=== PATIENT | male | born 1950 | race Caucasian/White ===

== ENCOUNTER 2017-04-26 14:53 | Emergency (ER) | payer MEDICARE, OTHER ==
[~2017-04-26] VITALS: Ht 177.8 cm; Wt 90.7 kg
[~2017-04-26 14:53] MED LIST: IBP800T PO; NAPR250T34 PO; PRD20T PO; TRM50T PO
--- OUTSIDE RECORDS SUMMARY | 2017-04-26 14:59 | XMS REPORT | Continuity of Care Document ---
Author Author [facility] Organization [facility] Address Unknown Phone Unavailable Allergies Active Description Code Type Severity Reaction Onset Reported/Identified Relationship to Patient Clinical Status Yes No Known Drug Allergies [id number] Drug Allergy Unknown N/A 05/14/2012 Medications There is no data. Problems Date Dx Coded Attending Type Code Diagnosis Diagnosed By 05/14/2012 Ot 847.9 05/14/2012 Ot 922.31 05/14/2012 Ot 959.19 05/14/2012 Ot E849.0 05/14/2012 Ot E885.9 04/10/2013 SPENSER WILSON, HANK T Ot 719.41 04/10/2013 SPENSER WILSON, HANK T Ot 723.4 04/10/2013 SPENSER WILSON, HANK T Ot 724.1 04/10/2013 SPENSER WILSON, HANK T Ot 728.85 04/10/2013 HANK DUEÑAS MD T Ot E000.8 04/10/2013 HANK DUEÑAS MD T Ot E813.0 04/10/2013 HANK DUEÑAS MD T Ot E849.5 06/12/2013 HUGO HOLDEN MD Ot 723.1 06/12/2013 HUGO HOLDEN MD Ot 724.1 06/12/2013 HUGO HOLDEN MD Ot E929.0 06/12/2013 HUGO HOLDEN MD Ot V57.1 10/16/2013 ERIC HOOD MD Ot 723.1 10/16/2013 ERIC HOOD MD Ot V57.1 Procedures There is no data. Results There is no data. Encounters ACCT No. Visit Date/Time Discharge Status Pt. Type Provider Facility Loc./Unit Complaint [id number] 10/16/2013 09:00:00 10/16/2013 10:03:00 DIS Outpatient ERIC HOOD MD J [facility] [id number] 05/07/2013 08:33:00 06/12/2013 10:45:00 DIS Outpatient NAVIN WILSON, HUGO Cota [facility] [id number] 04/10/2013 14:21:00 04/10/2013 18:04:00 DIS Emergency SPENSER WILSON, HANK Saleem [facility] ER [id number] 08/31/2014 14:25:00 Document Registration
[2017-04-26] MEDS ORDERED: ASPIRIN 81 MG CHEW (CHILDREN'S ASA) PO ONE (15:00)
[2017-04-26] MEDS ORDERED: NITROGLYCERIN 0.4 MG SL TABS BTL 25'S SL PRN (15:00)
--- NOTE | 2017-04-26 15:52 | ED Neck-Back Pain/Injury ---
General Chief Complaint: General Problems/Pain Stated Complaint: NECK PAIN,SHOULDER PAIN,NUMBNESS RIGHT SIDE Nursing Triage Note: c/o posterior neck pain with radiation down right arm. Has noticied right hand becoming numb. Onset 2-3 nights ago. Nursing Sepsis Screen: No Definite Risk Source of Information: Patient, Family Exam Limitations: No Limitations History of Present Illness Time Seen by Provider: 15:02 Initial Comments Here with report of right-sided neck pain that radiates to the shoulder and arm and is now radiating down to the chest. Onset few nights ago and worsening worsening during the nights. Noted that his right hand was becoming none was sleeping and that is better now. Denies breathing problems or weakness. Denies diaphoresis. Does have a mild cough currently. Timing/Duration: 2-3 Days Severity: Moderate, Severe Pain/Injury Location: Neck Radiation: Other (shoulders and upper chest) Method of Injury: Unknown Modifying Factors: Worse With Movement Associated Symptoms: No muscle spasms, No weakness Allergies and Home Medications Allergies Coded Allergies: No Known Drug Allergies (Unverified , 05/14/12) Home Medications Ibuprofen 800 Mg Tablet, 1 TAB PO TID PRN PRN for PAIN, #30 Prescribed by: HANK TRIMBLE on 04/10/13 1758 Naproxen 250 Mg Tablet, 2 EACH PO DAILY, (Reported) Prednisone 20 Mg Tab, 2 TAB PO DAILY for 4 Days Start the morning of 04/11/13 Prescribed by: HANK TRIMBLE on 04/10/13 1758 Constitutional: see HPI, No chills, No fever EENTM: no symptoms reported Respiratory: no symptoms reported Cardiovascular: no symptoms reported Gastrointestinal: no symptoms reported Musculoskeletal: see HPI, muscle pain, neck pain Psychiatric/Neurological: See HPI, Numbness, Denies Weakness All Other Systems Reviewed Negative Unless Noted: Yes Past Qdiwgtf-Uknfwz-Njmmqu Hx Patient Social History Alcohol Use: Regular Use Alcohol Beverage of Choice: Beer Recreational Drug Use: No Smoking Status: Former Smoker Type Used: Cigarettes Recent Foreign Travel: No Contact w/Someone Who Travel: No Recent Infectious Disease Expo: No Surgeries History of Surgeries: Yes Surgeries: Orthopedic Respiratory History of Respiratory Disorde: No Cardiovascular History of Cardiac Disorders: Yes Cardiac Disorders: Hypertension Neurological History of Neurological Disord: No Genitourinary History of Genitourinary Disor: No Gastrointestinal History of Gastrointestinal Di: No Musculoskeletal History of Musculoskeletal Dis: No Musculoskeletal Disorders: Gout Reviewed Nursing Assessment Reviewed/Agree w Nursing PMH: Yes Physical Exam Vital Signs Vital Sign - Last 12Hours 04/26/17 15:11 Temp 97.5 Pulse 70 B/P (MAP) 179/108 (131) Pulse Ox 98 Capillary Refill : Less Than 3 Seconds General Appearance: No Apparent Distress, WD/WN HEENT: PERRL/EOMI, Pharynx Normal Neck: Non Tender, Supple, Other (mild pain when turning head to the right) Cardiovascular: Regular Rate, Rhythm, No Murmur Respiratory: Lungs Clear, Normal Breath Sounds Gastrointestinal: Non Tender, Soft Back: Normal Inspection, No CVA Tenderness, No Vertebral Tenderness Extremity: Normal Range of Motion, Non Tender Neurologic/Psychiatric: Alert, Oriented x3 Skin: Normal Color, Warm/Dry Progress/Results/Core Measures Results/Orders Lab Results Laboratory Tests Test 04/26/17 15:40 Range/Units White Blood Count 6.0 4.3-11.0 10^3/uL Red Blood Count 4.96 4.35-5.85 10^6/uL Hemoglobin 16.5 13.3-17.7 G/DL Hematocrit 46 40-54 % Mean Corpuscular Volume 94 80-99 FL Mean Corpuscular Hemoglobin 33 25-34 PG Mean Corpuscular Hemoglobin Concent 36 32-36 G/DL Red Cell Distribution Width 12.0 10.0-14.5 % Platelet Count 144 130-400 10^3/uL Mean Platelet Volume 9.9 7.4-10.4 FL Neutrophils (%) (Auto) 55 42-75 % Lymphocytes (%) (Auto) 27 12-44 % Monocytes (%) (Auto) 15 H 0-12 % Eosinophils (%) (Auto) 2 0-10 % Basophils (%) (Auto) 1 0-10 % Neutrophils # (Auto) 3.3 1.8-7.8 X 10^3 Lymphocytes # (Auto) 1.6 1.0-4.0 X 10^3 Monocytes # (Auto) 0.9 0.0-1.0 X 10^3 Eosinophils # (Auto) 0.1 0.0-0.3 10^3/uL Basophils # (Auto) 0.0 0.0-0.1 10^3/uL Sodium Level 134 L 135-145 MMOL/L Potassium Level 3.8 3.6-5.0 MMOL/L Chloride Level 100 98-107 MMOL/L Carbon Dioxide Level 20 L 21-32 MMOL/L Anion Gap 14 5-14 MMOL/L Blood Urea Nitrogen 7 7-18 MG/DL Creatinine 0.75 0.60-1.30 MG/DL Estimat Glomerular Filtration Rate > 60 BUN/Creatinine Ratio 9 Glucose Level 102 70-105 MG/DL Calcium Level 9.1 8.5-10.1 MG/DL Total Bilirubin 0.9 0.1-1.0 MG/DL Aspartate Amino Transf (AST/SGOT) 63 H 5-34 U/L Alanine Aminotransferase (ALT/SGPT) 60 H 0-55 U/L Alkaline Phosphatase 48 40-136 U/L Myoglobin 28.9 10.0-92.0 NG/ML Troponin I < 0.30 <0.30 NG/ML Total Protein 7.4 6.4-8.2 GM/DL Albumin 4.1 3.2-4.5 GM/DL My Orders Orders - OLAMIDE DONG MD Cbc With Automated Diff (04/26/17 14:57) Ekg Tracing (04/26/17 14:57) Comprehensive Metabolic Panel (04/26/17 14:57) Myoglobin Serum (04/26/17 14:57) Aspirin Chewable Tablet (Baby Aspirin Ch (04/26/17 15:00) Nitroglycerin 0.4 Mg Btl 25's (Nitrostat (04/26/17 15:00) Chest Pa/Lat (2 View) (04/26/17 15:10) Ct Cervical Spine Wo (04/26/17 15:10) Troponin I (04/26/17 15:10) Medications Given in ED Current Medications Medications Dose Ordered Sig/Grace Route Start Time Stop Time Status Last Admin Dose Admin Aspirin 324 mg ONCE ONCE PO 04/26/17 15:00 04/26/17 15:01 DC 04/26/17 15:47 324 MG Vital Signs/I&O Vital Sign - Last 12Hours 04/26/17 04/26/17 15:11 15:47 Temp 97.5 97.5 Pulse 70 B/P (MAP) 179/108 (131) Pulse Ox 98 Blood Pressure Mean: 131 Progress Note : Progress Note Seen and evaluated. CT neck ordered. Chest x-ray ordered. We will get basic labs and EKG to rule out equivalents. 1645: CT and chest x-ray negative. No significant abnormality and the labs. EKG does not show any significant abnormalities. Discharged home with return precautions. Patient verbalize understanding instructions and agreement with plan. ECG Initial ECG Impression Date: Apr 26, 2017 Initial ECG Impression Time: 15:04 Initial ECG Rate: 77 Initial ECG Rhythm: Normal Sinus Comment Sinus rhythm with left axis deviation. No evidence of ST elevation OK. No previous available for comparison. Interpreted by me. Diagnostic Imaging Diagonstic Imaging: CT Plain Films/CT/US/NM/MRI: c-spine Comments NAME: SHYANN JENSEN [facility] REC#: [id number] PT STATUS: REG ER : 1950 PHYSICIAN: OLAMIDE DONG MD ADMIT DATE: 04/26/17/ER Signed Date of Exam: 04/26/17 CT CERVICAL SPINE WO PROCEDURE: CT cervical spine without contrast. TECHNIQUE: Multiple contiguous axial images were obtained through the cervical spine without the use of intravenous contrast. Sagittal and coronal reformations were then performed. DATE: April 26, 2017. INDICATION: 67-year-old male, right-sided neck pain. Right extremity symptoms as well. COMPARISON: MRI cervical spine April 10, 2013. FINDINGS: There is no identified facet joint subluxation or dislocation. There are mild right and moderate left facet degenerative changes at C4-C5. There is minimal grade 1 anterolisthesis of C4 on C5 measuring 1-2 mm. There is no asymmetric widening of the cervical disc spaces. There is no pronounced cervical disc height loss. There are degenerative changes at the C1-C2 articulation. There are anterior osteophytes at C4-C5 and C5-C6. There is small posterior osteophyte formation at C6-C7. CT is limited for assessment of disc pathology as well as non-bony causes of foraminal and spinal stenosis. There is no identified acute fracture of the cervical spine. The mastoid air cells and middle ears are well aerated in their visualized portions. There are bilateral carotid vascular calcifications. IMPRESSION: 1. Mild disc degenerative changes of the cervical spine at C4-C5, C5-C6, and C6-C7. 2. Mild right and moderate left facet degenerative changes at C4-C5 with mild grade 1 anterolisthesis of C4 on C5 measuring 1-2 mm. 3. No identified acute abnormality of the cervical spine. 4. CT is limited for assessment of disc pathology as well as non-bony causes of foraminal and spinal stenosis. Dictated by: Dictated on workstation # [id number] Dict: 04/26/17 1625 Trans: 04/26/17 163 Interpreted by: TYLER RITTER MD Electronically signed by: TYLER RITTER MD 04/26/175 Diagonstic Imaging: Xray Plain Films/CT/US/NM/MRI: chest Comments [place] NAME: SHYANN JENSEN [facility] REC#: [id number] PT STATUS: REG ER : 1950 PHYSICIAN: OLAMIDE DONG MD ADMIT DATE: 04/26/17/ER Draft Date of Exam:04/26/17 CHEST PA/LAT (2 VIEW) Patient History: Cough and congestion. Technique: Two views of the chest. Comparison: None. Findings: The lung volumes are normal. No focal consolidation is seen. No large pleural effusion or pneumothorax is seen. The cardiomediastinal silhouette is normal in size and contour. No acute osseous abnormality is seen. Degenerative changes are noted in the spine. Impression: No acute pulmonary abnormality seen. Dictated on workstation # [id number] Dict: 04/26/179 Trans: 04/26/17 163 [facility] [id number] Interpreted by: NATHANIEL DE SOUZA MD Electronically signed by: Departure Impression Impression: Primary Impression: Cervical radiculopathy Disposition: 01 HOME, SELF-CARE Condition: Improved Departure-Patient Inst. Decision time for Depature: 16:48 Referrals: HUGO HOLDEN MD (PCP/Family) Primary Care Physician Patient Instructions: Cervical Muscle Strain (DC), Neck Pain Add. Discharge Instructions: All discharge instructions reviewed with patient and/or family. Voiced understanding. You may take Aleve up to 2 tablets twice daily for a few days and then back to 1 tablet twice daily as needed for pain. Ensure that you drink plenty of fluids (water) with this. Follow-up with your doctor next week for recheck and further evaluation and to discuss further evaluation including MRI of the cervical spine as needed. Return for worse pain, swelling, weakness, breathing problems or other concerns as needed. Scripts Prednisone (Prednisone) 20 Mg Tab 40 MG PO DAILY, #14 TAB 0 Refills Prov: OLAMIDE DONG MD 04/26/17 OLAMIDE DONG MD Apr 26, 2017 15:52
[2017-04-26 15:54] LABS: BASOPHILS % (AUTO) 1 % (0-10); EOSINOPHILS # (AUTO) 0.1 10^3/uL (0.0-0.3); EOSINOPHILS % (AUTO) 2 % (0-10); HEMATOCRIT 46 % (40-54); HEMOGLOBIN 16.5 G/DL (13.3-17.7); LYMPHOCYTES # (AUTO) 1.6 X 10^3 (1.0-4.0); LYMPHOCYTES % (AUTO) 27 % (12-44); MEAN CORPUSCULAR HEMOGLOBIN 33 PG (25-34); MEAN CORPUSCULAR HGB CONC 36 G/DL (32-36); MEAN CORPUSCULAR VOLUME 94 FL (80-99); MEAN PLATELET VOLUME 9.9 FL (7.4-10.4); MONOCYTES # (AUTO) 0.9 X 10^3 (0.0-1.0); MONOCYTES % (AUTO) 15 % (0-12); NEUTROPHILS # (AUTO) 3.3 X 10^3 (1.8-7.8); NEUTROPHILS % (AUTO) 55 % (42-75); PLATELET COUNT 144 10^3/uL (130-400); RED BLOOD COUNT 4.96 10^6/uL (4.35-5.85)
[2017-04-26 16:07] LABS: ALANINE AMINOTRANSFERASE 60 U/L (0-55); ALBUMIN 4.1 GM/DL (3.2-4.5); ALKALINE PHOSPHATASE 48 U/L (40-136); BILIRUBIN,TOTAL 0.9 MG/DL (0.1-1.0); BUN/CREATININE RATIO 9; CALCIUM 9.1 MG/DL (8.5-10.1); CARBON DIOXIDE 20 MMOL/L (21-32); CHLORIDE 100 MMOL/L (98-107); CREATININE SERUM 0.75 MG/DL (0.60-1.30); GFR ESTIMATED > 60; GLUCOSE 102 MG/DL (70-105); POTASSIUM 3.8 MMOL/L (3.6-5.0); SODIUM 134 MMOL/L (135-145); TOTAL PROTEIN 7.4 GM/DL (6.4-8.2)
[2017-04-26 16:12] LABS: MYOGLOBIN SERUM 28.9 NG/ML (10.0-92.0)
--- NOTE | 2017-04-26 16:34 | Diagnostic Imaging Report ---
PROCEDURE: CT cervical spine without contrast. TECHNIQUE: Multiple contiguous axial images were obtained through the cervical spine without the use of intravenous contrast. Sagittal and coronal reformations were then performed. DATE: April 26, 2017. INDICATION: 67-year-old male, right-sided neck pain. Right extremity symptoms as well. COMPARISON: MRI cervical spine April 10, 2013. FINDINGS: There is no identified facet joint subluxation or dislocation. There are mild right and moderate left facet degenerative changes at C4-C5. There is minimal grade 1 anterolisthesis of C4 on C5 measuring 1-2 mm. There is no asymmetric widening of the cervical disc spaces. There is no pronounced cervical disc height loss. There are degenerative changes at the C1-C2 articulation. There are anterior osteophytes at C4-C5 and C5-C6. There is small posterior osteophyte formation at C6-C7. CT is limited for assessment of disc pathology as well as non-bony causes of foraminal and spinal stenosis. There is no identified acute fracture of the cervical spine. The mastoid air cells and middle ears are well aerated in their visualized portions. There are bilateral carotid vascular calcifications. IMPRESSION: 1. Mild disc degenerative changes of the cervical spine at C4-C5, C5-C6, and C6-C7. 2. Mild right and moderate left facet degenerative changes at C4-C5 with mild grade 1 anterolisthesis of C4 on C5 measuring 1-2 mm. 3. No identified acute abnormality of the cervical spine. 4. CT is limited for assessment of disc pathology as well as non-bony causes of foraminal and spinal stenosis. Dictated by: Dictated on workstation # [id number]
--- NOTE | 2017-04-26 16:36 | Diagnostic Imaging Report ---
Patient History: Cough and congestion. Technique: Two views of the chest. Comparison: None. Findings: The lung volumes are normal. No focal consolidation is seen. No large pleural effusion or pneumothorax is seen. The cardiomediastinal silhouette is normal in size and contour. No acute osseous abnormality is seen. Degenerative changes are noted in the spine. Impression: No acute pulmonary abnormality seen. Dictated by: Dictated on workstation # [id number]
[2017-04-26] MEDS ORDERED: METO-370 (16:42)
[2017-04-26] MEDS ORDERED: PRD20T PO (16:50)
[2017-04-26 17:00] VITALS: BP 172/100
== END 2017-04-26 17:00 | disposition home or self-care (01) ==
LOC: EDUNIT# 14:53 → ER 14:56
DX: M54.12 Radiculopathy, cervical region (principal); I10 Essential (primary) hypertension; M10.9 Gout, unspecified; Z87.891 Personal history of nicotine dependence
CPT/HCPCS: 36415; 71020; 72125; 80053; 83874; 84484; 85025; 93005; 93041

== ENCOUNTER → 2017-05-13 | Outpatient (CLI) | payer MEDICARE, OTHER ==
[~2017-05-13] MED LIST changes: +METO-370
--- NOTE | 2017-05-13 10:37 | Diagnostic Imaging Report ---
PROCEDURE: MR imaging cervical spine without contrast. TECHNIQUE: Multiplanar, multisequence MR imaging of the cervical spine was performed without contrast. INDICATION: Neck pain, right arm and shoulder pain. FINDINGS: The previous MRI cervical spine exam of 04/10/2013 noted mild disc protrusions eccentric to the left at C5-C6 and C6-C7. The CT cervical spine exam of 04/26/17 also noted mild degenerative disc disease at C4-C5, C5-C6 and C6-C7 as well as moderate left facet degenerative disease at the C4-C5 level. There was also slight anterior translation of C4 with respect to C5. On this study, there is still a disc protrusion to the left at both C5-C6 and C6-C7. At the C6-C7 level, the AP diameter of thecal sac is narrowed to 10.4 MM. At the C5-C6 level, the disc protrusion to the left is not as prominent as on the prior exam. The AP diameter of the thecal sac at this level measures approximately 11.2 mm. However, in the interval since the previous exam, a focal disc protrusion to the right at C5-C6 has developed. The disc material does not produce central stenosis but there is narrowing of the neural foramen on the right and there are may be encroaching of the exiting right nerve root. The remainder of the cervical spine is unchanged when compared to the previous study. No new area of spinal stenosis or nerve root encroachment has developed. There is no abnormal signal arising from the cord or the vertebral bodies to indicate an acute abnormality. There is no sign of a paraspinal mass. The expected carotid and vertebral flow voids are evident bilaterally. IMPRESSION: 1. In the interval since the prior exam, a focal disc protrusion to the right has developed at C5-C6. While the disc material does not produce central stenosis, there is narrowing of the neural foramen on the right and there may be encroachment of the exiting right nerve root at this level. 2. The disc protrusion at the C6-C7 level seen previously is essentially no different while the disc bulge to the left at C5-C6 is less prominent than on the prior exam. 3. No new area of spinal stenosis or nerve root encroachment has developed. 4. There is no sign of an acute bony abnormality or for cord lesion. Dictated by: Dictated on workstation # [id number]
== END ==
LOC: RAD 06:53
PROVIDERS: ATTEND Family Medicine
DX: M48.02 Spinal stenosis, cervical region (principal); M50.122 Cervical disc disorder at C5-C6 level with radiculopathy
CPT/HCPCS: 72141

== ENCOUNTER 2018-07-31 17:59 | Emergency (ER) | payer MEDICARE, OTHER ==
[~2018-07-31] VITALS: Ht 177.8 cm; Wt 90.7 kg
[2018-07-31 18:34] VITALS: BP_SYST 123; BP_SYST 125; BP_SYST 128; BP_DIAS 72; BP_DIAS 75; BP_DIAS 78
[2018-07-31 18:46] LABS: BASOPHILS % (AUTO) 0 % (0-10); EOSINOPHILS % (AUTO) 0 % (0-10); HEMATOCRIT 43 % (40-54); HEMOGLOBIN 15.4 G/DL (13.3-17.7); LYMPHOCYTES # (AUTO) 0.4 X 10^3 (1.0-4.0); LYMPHOCYTES % (AUTO) 7 % (12-44); MEAN CORPUSCULAR HEMOGLOBIN 33 PG (25-34); MEAN CORPUSCULAR HGB CONC 36 G/DL (32-36); MEAN CORPUSCULAR VOLUME 92 FL (80-99); MEAN PLATELET VOLUME 9.9 FL (7.4-10.4); MONOCYTES # (AUTO) 0.3 X 10^3 (0.0-1.0); MONOCYTES % (AUTO) 6 % (0-12); NEUTROPHILS # (AUTO) 4.5 X 10^3 (1.8-7.8); NEUTROPHILS % (AUTO) 87 % (42-75); PLATELET COUNT 122 10^3/uL (130-400); RED CELL DISTRIBUTION WIDTH 12.9 % (10.0-14.5); WHITE BLOOD COUNT 5.2 10^3/uL (4.3-11.0)
[2018-07-31] MEDS ORDERED: LACTATED RINGERS 1,000 ML IV STA (18:48)
--- NOTE | 2018-07-31 18:51 | ED Syncope ---
General Chief Complaint: Cardiac/General Problems Stated Complaint: LOW BLOOD PRESSURE Nursing Triage Note: Amb to room 9 with . He states that he was recently told to stop amylopapine because of ankle swelling. Was told to monitor BP. State his BP has been 140's/ 80's. Today he woke and had an episode of vomitingx1 and diarrhea. no fever. He became dizzy around 1745 and took bp stated it was 81-50. states he slumped over and believes he blacked out. did not fall. Staes he has no pain and is feeling fine now History of Present Illness Date Seen by Provider: Jul 31, 2018 Time Seen by Provider: 18:39 Initial Comments Patient presents to ER by private conveyance with his and family and chief complaint that today he woke up feeling a little off like he had a stomach bug. 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 Said he was doing okay but he said down and have a break and felt very poorly. He had several other episodes of diarrhea throughout the day so his decided to take him home. She got him home on put on a barstool in the dining room where he checked his blood pressure and found it was about 80/50 and he says he was feeling very dizzy like he was going to pass out. He says he doesn't think he fully passed out but his says he was not responding and surgical stools caused him and lowered him to the ground. He did not strike his head. Some blood thinners. He does have a history of sickle episodes. He does take metoprolol which was about 4-6 months ago increase from 50-100 mg daily. His amlodipine was discontinued last month after was causing some swelling in his feet. It is not taken anything else diuretic her blood pressure medicine. He does not have a history of thyroid disorder, dysrhythmias, chest pain, shortness of breath, numbness or tingling. Allergies and Home Medications Allergies Coded Allergies: No Known Drug Allergies (Unverified , 07/31/18) Patient Home Medication List Home Medication List Reviewed: Yes Review of Systems Constitutional: No chills, No diaphoresis; dizziness; No fever; malaise EENTM: No ear discharge, No hearing loss, No ear pain Respiratory: No cough, No short of breath Cardiovascular: No chest pain, No edema, No Hx of Intervention, No palpitations ; syncope Gastrointestinal: No abdominal pain, No constipation; diarrhea; No nausea, No vomiting Genitourinary: No discharge, No dysuria Musculoskeletal: No back pain, No joint pain Past Uhbrcim-Foemnu-Pmyllt Hx Patient Social History Alcohol Use: Regular Use Number of Drinks Today: AA Alcohol Beverage of Choice: Beer Recreational Drug Use: No Smoking Status: Former Smoker Type Used: Cigarettes Former Smoker, Quit: Apr 29, 1994 2nd Hand Smoke Exposure: No Recent Foreign Travel: No Contact w/Someone Who Travel: No Recent Infectious Disease Expo: No Physical Abuse: No Sexual Abuse: No Mistreated: No Fear: No Past Medical History Surgeries: Yes Orthopedic Respiratory: No Cardiac: Yes Hypertension Neurological: No Genitourinary: No Gastrointestinal: No Musculoskeletal: No Gout Endocrine: No Cancer: No Psychosocial: No Integumentary: No Blood Disorders: No Physical Exam Vital Signs Vital Signs - First Documented 07/31/18 18:03 Temp 97.6 Pulse 65 Resp 16 B/P (MAP) 171/85 (113) Pulse Ox 96 Capillary Refill : Less Than 3 Seconds Height, Weight, BMI Height: 5'10.00" Weight: 200lbs. oz. 90.332102ah; 26.44 BMI Method:Stated General Appearance: No Apparent Distress, WD/WN, Mild Distress HEENT: PERRL/EOMI, TMs Normal, Normal ENT Inspection, Pharynx Normal Neck: Full Range of Motion, Normal Inspection Cardiovascular: Regular Rate, Rhythm, No Edema, No Gallop, No JVD, No Murmur, Normal Peripheral Pulses Respiratory: Chest Non Tender, Lungs Clear, Normal Breath Sounds, No Accessory Muscle Use, No Respiratory Distress Gastrointestinal: Normal Bowel Sounds, No Organomegaly, Non Tender, Soft Extremities: Normal Capillary Refill, Normal Inspection, Non Tender, No Pedal Edema Neurologic/Psychiatric: Alert, Oriented x3, No Motor/Sensory Deficits, Normal 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, 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 Norm as Tested Motor/Sensory: No Motor Deficit, No Sensory Deficit Skin: Normal Color, Warm/Dry Progress/Results/Core Measures Results/Orders Lab Results Laboratory Tests Test 07/31/18 18:10 07/31/18 18:54 Range/Units White Blood Count 5.2 4.3-11.0 10^3/uL Red Blood Count 4.64 4.35-5.85 10^6/uL Hemoglobin 15.4 13.3-17.7 G/DL Hematocrit 43 40-54 % Mean Corpuscular Volume 92 80-99 FL Mean Corpuscular Hemoglobin 33 25-34 PG Mean Corpuscular Hemoglobin Concent 36 32-36 G/DL Red Cell Distribution Width 12.9 10.0-14.5 % Platelet Count 122 L 130-400 10^3/uL Mean Platelet Volume 9.9 7.4-10.4 FL Neutrophils (%) (Auto) 87 H 42-75 % Lymphocytes (%) (Auto) 7 L 12-44 % Monocytes (%) (Auto) 6 0-12 % Eosinophils (%) (Auto) 0 0-10 % Basophils (%) (Auto) 0 0-10 % Neutrophils # (Auto) 4.5 1.8-7.8 X 10^3 Lymphocytes # (Auto) 0.4 L 1.0-4.0 X 10^3 Monocytes # (Auto) 0.3 0.0-1.0 X 10^3 Eosinophils # (Auto) 0.0 0.0-0.3 10^3/uL Basophils # (Auto) 0.0 0.0-0.1 10^3/uL Neutrophils % (Manual) 84 % Lymphocytes % (Manual) 8 % Monocytes % (Manual) 3 % Eosinophils % (Manual) 1 % Basophils % (Manual) 0 % Band Neutrophils 4 % Blood Morphology Comment NORMAL Sodium Level 127 L 135-145 MMOL/L Potassium Level 4.1 3.6-5.0 MMOL/L Chloride Level 96 L 98-107 MMOL/L Carbon Dioxide Level 21 21-32 MMOL/L Anion Gap 10 5-14 MMOL/L Blood Urea Nitrogen 8 7-18 MG/DL Creatinine 0.85 0.60-1.30 MG/DL Estimat Glomerular Filtration Rate > 60 BUN/Creatinine Ratio 9 Glucose Level 167 H 70-105 MG/DL Calcium Level 9.0 8.5-10.1 MG/DL Corrected Calcium 8.8 8.5-10.1 MG/DL Magnesium Level 1.9 1.8-2.4 MG/DL Total Bilirubin 1.1 H 0.1-1.0 MG/DL Aspartate Amino Transf (AST/SGOT) 21 5-34 U/L Alanine Aminotransferase (ALT/SGPT) 18 0-55 U/L Alkaline Phosphatase 44 40-136 U/L Total Protein 7.0 6.4-8.2 GM/DL Albumin 4.2 3.2-4.5 GM/DL Thyroid Stimulating Hormone (TSH) 0.74 0.35-4.94 UIU/ML Urine Color YELLOW Urine Clarity SLIGHTLY CLOUDY Urine pH 6 5-9 Urine Specific [place] 1.015 L 1.016-1.022 Urine Protein 1+ H NEGATIVE Urine Glucose (UA) NEGATIVE NEGATIVE Urine Ketones NEGATIVE NEGATIVE Urine Nitrite NEGATIVE NEGATIVE Urine Bilirubin NEGATIVE NEGATIVE Urine Urobilinogen 1 NORMAL MG/DL Urine Leukocyte Esterase 1+ H NEGATIVE Urine RBC (Auto) NEGATIVE NEGATIVE Urine RBC NONE /HPF Urine WBC 0-2 /HPF Urine Crystals NONE /LPF Urine Bacteria NEGATIVE /HPF Urine Casts PRESENT /LPF Urine Hyaline Casts 10-25 H /LPF Urine Mucus MODERATE H /LPF Urine Culture Indicated NO Urine Opiates Screen NEGATIVE NEGATIVE Urine Oxycodone Screen NEGATIVE NEGATIVE Urine Methadone Screen NEGATIVE NEGATIVE Urine Propoxyphene Screen NEGATIVE NEGATIVE Urine Barbiturates Screen NEGATIVE NEGATIVE Ur Tricyclic Antidepressants Screen NEGATIVE NEGATIVE Urine Phencyclidine Screen NEGATIVE NEGATIVE Urine Amphetamines Screen NEGATIVE NEGATIVE Urine Methamphetamines Screen NEGATIVE NEGATIVE Urine Benzodiazepines Screen NEGATIVE NEGATIVE Urine Cocaine Screen NEGATIVE NEGATIVE Urine Cannabinoids Screen NEGATIVE NEGATIVE My Orders Orders - JONATHAN HUGO Orthostatic Vital Signs (Adult (07/31/18 18:37) Cbc With Automated Diff (07/31/18 18:37) Comprehensive Metabolic Panel (07/31/18 18:37) Drug Screen Stat (Urine) (07/31/18 18:37) Magnesium (07/31/18 18:37) Thyroid Stimulating Hormone (07/31/18 18:37) Ua Culture If Indicated (07/31/18 18:37) Continuous Ekg Monitoring (07/31/18 18:38) Ekg Tracing (07/31/18 18:38) Lactated Ringers (Lr 1000 Ml Iv Solution (07/31/18 18:48) Manual Differential (07/31/18 18:10) Chest 1 View, Ap/Pa Only (07/31/18 18:52) Vital Signs/I&O 07/31/18 07/31/18 18:03 18:34 Temp 97.6 Pulse 65 63 63 66 Resp 16 B/P (MAP) 171/85 (113) 128/72 (90) 125/75 (92) 123/78 (93) Pulse Ox 96 Blood Pressure Mean: 93 Progress Progress Note #1: Time: 19:21 Progress Note 2017 he had a hyponatremia of 134. We don't have any labs since then. I suspect that this hyponatremia is probably chronic. It was symptomatic however he is asymptomatic now. Plan to replace some sodium with a liter of LR. At the end of our examination and if he is feeling okay then we could let him go home for outpatient follow-up but if he still symptomatic we would consider an observation stay. Progress Note #2: Time: 19:45 Progress Note After a liter fluids patient's feeling much better. We got him up and walked around the ER he did well. He can go home. He can follow-up at his scheduled appointment with Dr. Holden to discuss his blood pressure medicines as well as his possibility of chronic hyponatremia and his syncopal episodes. Initial ECG Impression Date: Jul 31, 2018 Initial ECG Impression Time: 18:25 Initial ECG Rate: 61 Initial ECG Rhythm: Normal Sinus Initial ECG Intervals: Normal Initial ECG Impression: Normal, Nonspecific Changes, 1st Degree AV Block Initial ECG Comparisson: No Previous ECG Available Comment First-degree AV block but no ST elevation or depression. Diagnostic Imaging Diagonstic Imaging: Xray Plain Films/CT/US/NM/MRI: chest (1v) Reviewed: Reviewed by Me Departure Impression Primary Impression: Syncope and collapse Additional Impression: Gastroenteritis and colitis, viral Disposition: 01 HOME, SELF-CARE Condition: Improved Departure-Patient Inst. Decision time for Depature: 19:49 Referrals: HUGO HOLDEN MD (PCP/Family) Primary Care Physician Patient Instructions: Hyponatremia, Syncope (Fainting) (DC) Add. Discharge Instructions: Keep your follow-up appointment with Dr. Jovel in the next couple weeks. Drink some sports drinks or next couple days. If you're still feeling puny, nauseated or having any vomiting or diarrhea then hold the metoprolol for that day. All discharge instructions reviewed with patient and/or family. Voiced understanding. JONATHAN HUGO Jul 31, 2018 18:51
[2018-07-31 19:01] LABS: ALANINE AMINOTRANSFERASE 18 U/L (0-55); ALBUMIN 4.2 GM/DL (3.2-4.5); ALKALINE PHOSPHATASE 44 U/L (40-136); BILIRUBIN,TOTAL 1.1 MG/DL (0.1-1.0); BUN/CREATININE RATIO 9; CARBON DIOXIDE 21 MMOL/L (21-32); CHLORIDE 96 MMOL/L (98-107); CREATININE SERUM 0.85 MG/DL (0.60-1.30); GFR ESTIMATED > 60; GLUCOSE 167 MG/DL (70-105); MAGNESIUM 1.9 MG/DL (1.8-2.4); POTASSIUM 4.1 MMOL/L (3.6-5.0); SODIUM 127 MMOL/L (135-145)
[2018-07-31 19:01] LABS: BILIRUBIN,URINE NEGATIVE (NEGATIVE); CLARITY,URINE SLIGHTLY CLOUDY; COLOR,URINE YELLOW; GLUCOSE, URINE (UA) NEGATIVE (NEGATIVE); KETONES,URINE NEGATIVE (NEGATIVE); LEUKOCYTE ESTERASE ,URINE 1+ (NEGATIVE); NITRITE,URINE NEGATIVE (NEGATIVE); PH,URINE 6 (5-9); PROTEIN,URINE 1+ (NEGATIVE); UROBILINOGEN,URINE 1 MG/DL (NORMAL)
--- NOTE | 2018-07-31 19:07 | Diagnostic Imaging Report ---
INDICATION: Hypotension, dehydration. TECHNIQUE: Single-view chest, 7:00 p.m. CORRELATION STUDY: 04/26/2017. FINDINGS: Heart size and mediastinum are stable. The lungs are clear with no consolidating infiltrate. There is no significant effusion or pneumothorax. IMPRESSION: 1. Negative for acute abnormality. Dictated by: Dictated on workstation # [id number]
[2018-07-31 19:14] LABS: BACTERIA,URINE NEGATIVE /HPF; WBC,URINE 0-2 /HPF
[2018-07-31 19:18] LABS: AMPHETAMINE SCREEN, URINE NEGATIVE (NEGATIVE); BARBITURATE SCREEN URINE NEGATIVE (NEGATIVE); BENZODIAZEPINES SCREEN URINE NEGATIVE (NEGATIVE); CANNABINOID SCREEN, URINE NEGATIVE (NEGATIVE); COCAINE SCREEN URINE NEGATIVE (NEGATIVE); METHADONE STAT NEGATIVE (NEGATIVE); METHAMPHETAMINE SCREEN URINE S NEGATIVE (NEGATIVE); OPIATE SCREEN URINE NEGATIVE (NEGATIVE); OXYCODONE STAT NEGATIVE (NEGATIVE); PROPOXYPHENE STAT NEGATIVE (NEGATIVE); TRICYCLIC ANTIDEPRESSANTS SCRE NEGATIVE (NEGATIVE)
[2018-07-31 19:24] LABS: BAND NEUTROPHILS 4 %; BASOPHILS % (MANUAL) 0 %; EOSINOPHILS % (MANUAL) 1 %; LYMPHOCYTES % (MANUAL) 8 %; MONOCYTES % (MANUAL) 3 %; NEUTROPHILS % (MANUAL) 84 %; RBC MORPH NORMAL
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
[2018-07-31 20:05] VITALS: BP 158/76
== END 2018-07-31 20:04 | disposition home or self-care (01) ==
LOC: EDUNIT# 17:59 → ER 18:01
DX: A08.4 Viral intestinal infection, unspecified (principal); R55 Syncope and collapse; I10 Essential (primary) hypertension; M10.9 Gout, unspecified; Z87.891 Personal history of nicotine dependence
CPT/HCPCS: 36415; 71045; 80053; 80306; 81000; 83735; 84443; 85007; 85027; 93005